=== PATIENT | male | born 2000 | race Two or more races ===

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

== ENCOUNTER 2021-08-27 00:42 | Emergency (ER) | payer MEDICAID, OTHER ==
[~2021-08-27 00:42] MED LIST changes: -FLUO10CA14 PO; +FLUO10CA17 PO
== END 2021-08-27 01:10 | disposition left against medical advice (07) ==
LOC: ER 00:42
DX: R06.02 Shortness of breath (principal); Z53.21 Procedure and treatment not carried out due to patient leaving prior to being seen by health care provider